=== PATIENT | male | born 1975 | race Caucasian/White ===

== ENCOUNTER 2021-09-25 08:10 | Emergency (ER) | payer MEDICAID ==
[~2021-09-25] VITALS: Ht 172.7 cm; Wt 80.0 kg
[2021-09-25] MEDS ORDERED: LORAZEPAM 2MG/ML CPJ IM STA ×2 (10:18→12:31)
[2021-09-25] MEDS ORDERED: CEFAZOLIN 1000MG PREMIX 50 ML IV ONE (10:30)
[2021-09-25] MEDS ORDERED: OLANZAPINE 10 MG/VIAL IM ONE ×2 (10:30→12:45)
[2021-09-25] MEDS ORDERED: TETANUS, DIPHTHERIA, PERTUSSIS VAC/PF 0.5ML (>10YR OLD) IM ONE (10:30)
[2021-09-25 12:52] LABS: BASOPHILS % 0.5 % (0.0-2.0); EOSINOPHILS % 0.3 % (0.0-5.0); HEMATOCRIT. 46.6 % (42.0-52.0); LYMPHOCYTES % 16.9 % (20.0-50.0); MEAN CORPUSCULAR HEMOGLOBIN 30.4 pg (28.0-32.0); MEAN CORPUSCULAR VOLUME 88.8 fL (80.0-94.0); MEAN PLATELET VOLUME 7.7 fl (7.4-10.4); MONOCYTES % 11.4 % (2.0-8.0); NEUTROPHILS % 70.9 % (40.0-76.0); PLATELET 467 x1000/uL (130-400); RED BLOOD CELL COUNT 5.25 mill/uL (4.7-6.1); RED CELL DISTRIBUTION WIDTH 14.7 % (11.6-14.6)
[2021-09-25 12:54] LABS: CHLORIDE 107 mEq/L (98-107)
[2021-09-25 12:58] LABS: ETHANOL BLOOD < 10 mg/dL
[2021-09-25] MEDS ORDERED: DIPHENHYDRAMINE 50MG/ML VIAL IV ONE (14:00)
[2021-09-25] MEDS ORDERED: MORPHINE SULFATE 2 MG/ML CPJ (NOT FOR IM USE) IV ONE (14:00)
[2021-09-25] MEDS ORDERED: LORAZEPAM 2MG/ML CPJ IV ONE ×2 (14:00→23:00)
[2021-09-25] MEDS ORDERED: SODIUM CHLORIDE 0.9% 1,000 ML IV ONE (15:45)
[2021-09-25 19:24] LABS: INR 1.1; PROTHROMBIN TIME 11.8 sec (9.6-11.0)
[2021-09-26 01:06] LABS: *BENZODIAZEPINES SCREEN URINE NEGATIVE (NEGATIVE); *COCAINE SCREEN URINE NEGATIVE (NEGATIVE); METHADONE URINE SCREEN NEGATIVE (NEGATIVE); OPIATES URINE SCREEN PRESUMTIVE POSITIVE (NEGATIVE)
[2021-09-26 01:07] LABS: *AMPHETAMINES SCREEN URINE PRESUMTIVE POSITIVE (NEGATIVE); *BARBITURATES SCREEN URINE NEGATIVE (NEGATIVE); CANNABINOID URINE SCREEN PRESUMTIVE POSITIVE (NEGATIVE); PHENCYCLIDINE URINE SCREEN PRESUMTIVE POSITIVE (NEGATIVE)
[2021-09-26] MEDS ORDERED: IBUP-2029 MT (03:01)
[2021-09-26 06:00] VITALS: BP 131/81
== END 2021-09-26 16:19 | disposition left against medical advice (07) ==
LOC: ER 08:10 → CANBEDREQ 09-26 09:54 → ER 09-26 16:19
DX: S02.642B Fracture of ramus of left mandible, initial encounter for open fracture (principal); Z78.1 Physical restraint status; X83.8XXA Intentional self-harm by other specified means, initial encounter; Y93.89 Activity, other specified; Y92.018 Other place in single-family (private) house as the place of occurrence of the external cause
CPT/HCPCS: 36415; 70450; 70486; 80053; 80305; 80320; 82962; 85025; 85610; 86850; 86900; 86901; 90471; 90715; 96361; 96365; 96372; 96375; 96376; 99291; C1893; J0690; J1200; J2060; J2270; J3490; J7030; Z7610; G0480

== ENCOUNTER 2021-09-26 16:06 | Emergency (ER) | payer MEDICAID ==
[~2021-09-26] VITALS: Ht 172.7 cm; Wt 73.0 kg
[~2021-09-26 16:06] MED LIST: IBUP-2029 MT
[2021-09-26 16:09] VITALS: BP 155/103
[2021-09-26] MEDS ORDERED: CEFAZOLIN 1000MG PREMIX 50 ML IV SCH (22:00)
== END 2021-09-27 00:05 | disposition left against medical advice (07) ==
LOC: ER 16:06
DX: S02.69XB Fracture of mandible of other specified site, initial encounter for open fracture (principal); X83.8XXA Intentional self-harm by other specified means, initial encounter; Y93.89 Activity, other specified; Y92.488 Other paved roadways as the place of occurrence of the external cause
CPT/HCPCS: 96365; 99285; J0690

== ENCOUNTER 2022-01-20 05:29 | Emergency (ER) | payer MEDICAID ==
[~2022-01-20] VITALS: Ht 177.8 cm; Wt 91.0 kg
[2022-01-20 06:19] LABS: BASOPHILS % 0.7 % (0.0-2.0); EOSINOPHILS % 4.9 % (0.0-5.0); HEMATOCRIT. 40.2 % (42.0-52.0); HEMOGLOBIN. 13.7 g/dL (14.0-18.0); LYMPHOCYTES % 42.6 % (20.0-50.0); MEAN CORPUSCULAR HEMOGLOBIN 30.3 pg (28.0-32.0); MEAN PLATELET VOLUME 7.7 fl (7.4-10.4); MONOCYTES % 11.6 % (2.0-8.0); NEUTROPHILS % 40.2 % (40.0-76.0); PLATELET 339 x1000/uL (130-400); RED BLOOD CELL COUNT 4.52 mill/uL (4.7-6.1)
[2022-01-20 07:04] LABS: CHLORIDE 106 mEq/L (98-107)
[2022-01-20 07:09] LABS: ETHANOL BLOOD < 10 mg/dL
[2022-01-20] MEDS ORDERED: LORAZEPAM 2MG/ML CPJ IM STA (13:13)
[2022-01-20] MEDS ORDERED: OLANZAPINE 10 MG/VIAL IM ONE (13:15)
[2022-01-20] MEDS ORDERED: BUSPIRONE HCL 5MG TABLET PO SCH (14:00)
[2022-01-20 14:31] LABS: CLARITY URINE CLEAR (CLEAR); COLOR URINE YELLOW (YELLOW); KETONES URINE TRACE (NEGATIVE); LEUKOCYTE ESTERASE URINE NEGATIVE (NEGATIVE); NITRITE URINE NEGATIVE (NEGATIVE); OCCULT BLOOD URINE NEGATIVE (NEGATIVE); PH URINE 5.5 (4.5-8.0); PROTEIN URINE TRACE (NEGATIVE); SPECIFIC GRAVITY URINE 1.015 (1.005-1.030)
[2022-01-20 15:13] LABS: *AMPHETAMINES SCREEN URINE PRESUMTIVE POSITIVE (NEGATIVE); *BARBITURATES SCREEN URINE NEGATIVE (NEGATIVE); *BENZODIAZEPINES SCREEN URINE NEGATIVE (NEGATIVE)
[2022-01-20 15:14] LABS: *COCAINE SCREEN URINE NEGATIVE (NEGATIVE); CANNABINOID URINE SCREEN PRESUMTIVE POSITIVE (NEGATIVE); METHADONE URINE SCREEN NEGATIVE (NEGATIVE); OPIATES URINE SCREEN PRESUMTIVE POSITIVE (NEGATIVE); PHENCYCLIDINE URINE SCREEN PRESUMTIVE POSITIVE (NEGATIVE)
[2022-01-20] MEDS ORDERED: LORAZEPAM 2MG/ML CPJ IM ONE (15:30)
[2022-01-20] MEDS ORDERED: HALOPERIDOL LACTATE 5MG/ML VIAL IM ONE (15:30)
[2022-01-20] MEDS ORDERED: TRAZODONE HCL 50MG TABLET PO SCH (21:00)
[2022-01-20] MEDS ORDERED: QUETIAPINE FUMARATE 50MG TABLET PO SCH (21:00)
[2022-01-20] MEDS: OLANZAPINE 5MG TABLET PO SCH (21:00)
[2022-01-21] MEDS: OLANZAPINE 5MG TABLET PO SCH ×2 (08:19→20:49)
[2022-01-21] MEDS ORDERED: LORAZEPAM 2MG/ML CPJ IM ONE (22:30)
[2022-01-21] MEDS ORDERED: HALOPERIDOL LACTATE 5MG/ML VIAL IM ONE (22:30)
[2022-01-22] MEDS: OLANZAPINE 5MG TABLET PO SCH (09:00)
[2022-01-22 13:00] VITALS: BP 138/86
== END 2022-01-22 13:25 | disposition home or self-care (01) ==
LOC: ER 05:29
DX: R45.850 Homicidal ideations (principal); F99 Mental disorder, not otherwise specified; Z20.822 Contact with and (suspected) exposure to COVID-19
CPT/HCPCS: 36415; 80053; 80305; 80320; 81003; 85025; 96372; 99285; C9803; J1630; J2060; J3490; U0003; U0005; G0480

== ENCOUNTER 2022-03-04 20:51 | Emergency (ER) | payer MEDICAID ==
[~2022-03-04] VITALS: Ht 175.3 cm; Wt 78.0 kg
[2022-03-04 21:03] VITALS: BP 143/94
== END 2022-03-04 21:25 | disposition left against medical advice (07) ==
LOC: ER 20:51
DX: Z53.21 Procedure and treatment not carried out due to patient leaving prior to being seen by health care provider (principal)